=== PATIENT | male | born 1975 | race Caucasian/White ===

== ENCOUNTER 2021-04-24 12:27 | Emergency (ER) | payer OTHER, SELFPAY ==
[2021-04-24 12:40] VITALS: BP 122/80; PULSE 70; RESP 20; TEMP 36.6; O2SAT 100; BMI 30.1
[2021-04-24 12:41] VITALS: PULSE 72; O2SAT 100
--- NOTE | 2021-04-24 12:58 | ED_ITS ---
HPI - General Adult General Chief complaint: Abdominal Pain Stated complaint: ABDOMINAL PAIN Time Seen by Provider: 04/24/21 12:40 Source: patient Mode of arrival: Ambulatory Limitations: no limitations History of Present Illness HPI narrative: Patient is a 45-year-old male who is here for evaluation of epigastric abdominal pain. He states that he had a very similar episode back in November which he states that he received a GI cocktail. He states that afterwards his symptoms improved. He is unsure whether not it was this medication that improved his symptoms or whether not it just improved on its own. Has not had any issues since then until this morning at about 0700 hours when he developed the abdominal pain. Has had a couple episodes of vomiting which he states helps his symptoms for very short period of time but then returns. No fevers. Has tried multiple [id number] GI medications to inc lude Pepto-Bismol, H2 blockers and PPI. None of these have improved his symptoms. No chest pain. No shortness of breath. No change in bowel habits. No urinary symptoms. Related Data Home Medications Medication Instructions Recorded Confirmed ibuprofen 400 mg tablet PRN #0 10/03/17 Previous Rx's Medication Instructions Recorded nadolol 20 mg tablet 20 mg PO SEE INSTRUCTIONS #45 tab 12/04/18 rizatriptan 10 mg tablet 10 mg PO SEE INSTRUCTIONS #6 tab 12/04/18 sumatriptan succinate 100 mg tablet 100 mg PO SEE INSTRUCTIONS PRN #12 12/04/18 tab Allergies Allergy/AdvReac Type Severity Reaction Status Date / Time No Known Allergies Allergy Uncoded 01/17/18 12:53 Review of Systems Constitutional Constitutional: Denies fever(s) Cardiovascular Cardiovascular: Reports system reviewed and no additional complaints, except as documented Respiratory Respiratory: Reports system reviewed and no additional complaints, except as documented Gastrointestinal Gastrointestinal: Reports abdominal pain, Denies change in bowel habits and Reports vomiting Genitourinary Genitourinary: Reports system reviewed and no additional complaints, except as documented Musculoskeletal Musculoskeletal: Reports system reviewed and no additional complaints, except as documented Integumentary/Breasts Skin/Breast: Reports system reviewed and no additional complaints, except as documented Neurologic Neurologic: Reports system reviewed and no additional complaints, except as documented Hematologic/Lymphatic On Anticoagulants: No Allergic/Immunologic Allergic/Immunologic: Reports system reviewed and no additional complaints, except as documented Patient History Medical History Abdominal pain Social History Smoking Status: Never smoker Smoking Status: Never smoker Substance Use Type: does not use Exam Initial Vital Signs Initial Vital Signs: Vital Signs Temperature 97.8 F 04/24/21 12:40 Pulse Rate 70 04/24/21 12:40 Respiratory Rate 20 04/24/21 12:40 Blood Pressure 122/80 04/24/21 12:40 Pulse Oximetry 100 04/24/21 12:40 Const General: cooperative and comfortable HENMT Head: normal to inspection and normocephalic Resp Effort & Inspection: normal respiratory effort Auscultation: clear to auscultation bilaterally Cardio Rate: regular rate Rhythm: regular rhythm GI Other: Discomfort in epigastric region. Skin General: no rashes or lesions noted Neuro General: patient alert, patient awake and patient oriented x3 Extrem General: normal to inspection and capillary refill normal Psych Appearance: grossly normal and well kempt Course Orders Ordered: ED Orders 04/24/21 12:40 EKG-12 Lead Stat 04/24/21 12:56 Complete Blood Count AUTO DIFF Stat Comprehensive Metabolic Panel Stat Lipase Stat Discontinued Medications Al Hydrox/Mg Hydrox/Simethicone 20 ml/ Lidocaine HCl 15 ml 0 ml PO NOW ONE Stop: 04/24/21 12:50 Last Admin: 04/24/21 13:03 Dose: 35 ml Documented by: DERIC Pantoprazole Sodium (Pantoprazole 40 Mg Vial) 40 mg IV NOW ONE Stop: 04/24/21 12:59 Last Admin: 04/24/21 13:07 Dose: 40 mg Documented by: DERIC Vital Signs Vital signs: Vital Signs - 8 hr 04/24/21 12:40 04/24/21 12:41 04/24/21 13:00 Temperature 97.8 F Pulse Rate 70 72 73 Respiratory Rate 20 Blood Pressure 122/80 Pulse Oximetry 100 100 100 04/24/21 13:30 Temperature Pulse Rate 71 Respiratory Rate Blood Pressure Pulse Oximetry 98 Medical Decision Making Lab Data Lab results reviewed: Yes I reviewed the patient's lab results. Result diagrams: 04/24/21 12:56 04/24/21 12:56 Labs: Lab Results 04/24/21 04/24/21 Range/Units 12:56 12:56 WBC 13.1 H (4.5-11.0) X10^3/uL RBC 5.14 (4.5-5.9) X10^6/uL Hgb 15.2 (13.5-17.5) g/dL Hct 45.9 (41-53) % MCV 89.3 (80-100) fL MCH 29.6 (26-34) PG MCHC 33.1 (30-36) % RDW 12.8 (11.6-14.8) % Plt Count 242 (150-400) X10^3/uL Neut % (Auto) 86.3 H (50-75) % Lymph % (Auto) 8.2 L (25-40) % [place] % (Auto) 4.8 (3-14) % Eos % (Auto) 0.2 L (2-4) % Baso % (Auto) 0.5 (0-2) % Neut # (Auto) 05297 H (1380-9334) /uL Lymph # (Auto) 1100 (6128-2629) /uL [place] # (Auto) 600 (0-900) /uL Eos # (Auto) 0 (0-450) /uL Baso # (Auto) 100 (0-100) /uL Sodium 137 (137-145) mmol/L Potassium 4.3 (3.4-5.1) mmol/L Chloride 106 (98-107) mmol/L Carbon Dioxide 23 (22-32) mmol/L BUN 16 (9-20) mg/dL Creatinine 1.15 (0.66-1.25) mg/dL Estimated GFR > 60.0 (>60) mL/min BUN/Creatinine Ratio 13.9 (6-22) Glucose 118 H (70-100) mg/dL Calcium 10.3 H (8.4-10.2) mg/dL Total Bilirubin 0.8 (0.2-1.3) mg/dL AST 23 (17-59) IU/L ALT 23 (<50) IU/L Alkaline Phosphatase 87 (38-126) U/L Total Protein 8.4 H (6.3-8.2) g/dL Albumin 5.0 (3.5-5.0) g/dL Globulin 3.4 (1.7-4.1) g/dL Albumin/Globulin Ratio 1.5 (1.0-2.8) Lipase 100 (23-300) U/L ECG Data Attestation: I personally reviewed and interpreted this ECG as follows: Interpretation: Sinus rhythm Ventricular rate is 67 Normal axis Normal QRS Normal QTC No ST T wave changes MDM Narrative Medical decision making narrative: Patient had almost a complete resolution of his symptoms after medications here in the ER. His labs and EKG are unremarkable. Do suspect that this is a GI issue. Feel that we can hold on further workup for now. He was given return precautions and follow-up instructions. He expressed understanding and agreement. Discharge Plan Departure Patient Disposition: Home Clinical Impression: Abdominal pain, Acid reflux Instructions: DI for Abdominal Pain-Adult Activity Restrictions/Additional Instructions: I do recommend that you start taking a medicine called famotidine/Pepcid. You can purchase this [id number]. Taken on a daily basis like we discussed. Continue the rest of her medications as directed. Return to the emergency department for any new or worsening symptoms Prescriptions: No Action ibuprofen 400 MG tablet PRNQty: 0 RF: 0 sumatriptan succinate 100 mg tablet 100 mg PO SEE INSTRUCTIONS PRN (Reason: migraine headache) Qty: 12 RF: 1 rizatriptan 10 mg tablet 10 mg PO SEE INSTRUCTIONS Qty: 6 RF: 1 nadolol 20 mg tablet 20 mg PO SEE INSTRUCTIONS Qty: 45 RF: 1
[2021-04-24 13:00] VITALS: PULSE 73; O2SAT 100
[2021-04-24] MEDS: MAG HYDROX/ALUMINUM/SIMETH SUS 20 ML, LIDOCAINE VISCOUS 2% 15 ML PO (13:03)
[2021-04-24] MEDS: PANTOPRAZOLE 40 MG VIAL IV (13:07)
[2021-04-24 13:10] LABS: Add Manual Diff / Slide Review NO; Basophils Absolute Auto 100 /uL (0-100); Basophils Percent Auto 0.5 % (0-2); Eosinophils Absolute Auto 0 /uL (0-450); Eosinophils Percent Auto 0.2 % (2-4); Hematocrit 45.9 % (41-53); Hemoglobin 15.2 g/dL (13.5-17.5); Lymphocytes Absolute Auto 1100 /uL (1100-4500); Lymphocytes Percent Auto 8.2 % (25-40); Mean Corpuscular HGB Conc 33.1 % (30-36); Mean Corpuscular Hemoglobin 29.6 PG (26-34); Mean Corpuscular Volume 89.3 fL (80-100); Monocytes Absolute Auto 600 /uL (0-900); Monocytes Percent Auto 4.8 % (3-14); Neutrophils Absolute Auto 11300 /uL (1500-7000); Neutrophils Percent Auto 86.3 % (50-75); Platelet Count 242 X10^3/uL (150-400); Red Blood Cell Count 5.14 X10^6/uL (4.5-5.9); Red Cell Distribution Width 12.8 % (11.6-14.8); White Blood Cell Count 13.1 X10^3/uL (4.5-11.0)
[2021-04-24 13:24] LABS: Alanine Aminotransferase 23 IU/L (<50); Albumin Globulin Ratio 1.5 (1.0-2.8); Alkaline Phosphatase 87 U/L (38-126); Aspartate Aminotransferase 23 IU/L (17-59); BUN Creatinine Ratio 13.9 (6-22); Bilirubin Total 0.8 mg/dL (0.2-1.3); Blood Urea Nitrogen 16 mg/dL (9-20); Calcium 10.3 mg/dL (8.4-10.2); Carbon Dioxide 23 mmol/L (22-32); Chloride 106 mmol/L (98-107); Estimated Glomerular Filt Rate > 60.0 mL/min (>60); Globulin 3.4 g/dL (1.7-4.1); Glucose 118 mg/dL (70-100); HEMOLYSIS < 15 (0-50); Lipase 100 U/L (23-300); Potassium 4.3 mmol/L (3.4-5.1); Sodium 137 mmol/L (137-145); Total Protein 8.4 g/dL (6.3-8.2)
[2021-04-24 13:30] VITALS: PULSE 71; O2SAT 98
[2021-04-24 14:15] VITALS: BP 102/67; PULSE 79; RESP 18; O2SAT 98
== END 2021-04-24 14:16 | disposition home or self-care (01) ==
PROVIDERS: Emergency Provider Emergency Medicine
DX: R10.13 Epigastric pain (principal); K21.9 Gastro-esophageal reflux disease without esophagitis
CPT/HCPCS: 36415; 80053; 83690; 85025; 93005; 93010; 96374; 99284; C9113